=== PATIENT | male | born 1945 | race Caucasian/White ===

== ENCOUNTER 2017-11-19 16:36 | Inpatient (IN) | payer OTHER ==
[~2017-11-19] VITALS: Ht 190.5 cm; Wt 117.5 kg
--- NOTE | ~2017-11-19 | HC ---
[facility] [place] [address] CONSULTATION Name: FLORENCIO CLEVELAND Room #: [facility] IN M.R.#: [id number] Admission: 11/19/17 Attend Phys: Justus Sam MD Discharge: Date of : 43 Report #: [id number] THIS REPORT FOR: //name// CC: Justus AVELAR PCP DATE OF SERVICE: 11/20/2017 CARDIOLOGY CONSULTATION INDICATION: Chest pain. HISTORY OF PRESENT ILLNESS: This is a 71-year-old gentleman presenting with acute onset of chest pains. Yesterday afternoon, he was working on the computer. He started to feel a discomfort in the substernal area, then he proceeded to black out in his chair. After 30-40 seconds, he regained consciousness. He got up and started to walk around. He still had the substernal chest pain, associated with diaphoresis and dyspnea. His came home and they went to an urgent care facility. They were directed to the ER. The initial EKG revealed atrial fibrillation with a heart rate of 155 beats per minute. He was given Cardizem and converted to sinus rhythm. There is no history of fever, chills, PND or orthopnea. PAST MEDICAL HISTORY: Denies hypertension. Denies diabetes. ALLERGIES: None. MEDICATIONS: None. SOCIAL HISTORY: Denies tobacco use. FAMILY HISTORY: Negative for premature CAD. REVIEW OF SYSTEMS: A full 10-point review of systems is performed. Only the pertinent positives and negatives are described in the HPI. PHYSICAL EXAMINATION: VITAL SIGNS: Blood pressure is 150/80, heart rate is 75 beats per minute. GENERAL APPEARANCE: This is a mildly overweight male, in no acute distress. HEENT: Normocephalic, atraumatic. Oral mucosa moist. NECK: Supple. LUNGS: Clear to auscultation. CARDIAC: Regular rate and rhythm, S1, S2 positive. ABDOMEN: Soft, nontender. EXTREMITIES: No cyanosis. Trace lower extremity edema. NEUROLOGIC: Alert and oriented x 3. [facility] [address] [place] [address] CONSULTATION Name: CLEVELANDFLORENCIO Room #: [address] [place] [address] IN M.R.#: [id number] Admission: 11/19/17 Attend Phys: Justus Sam MD Discharge: Date of : 44 Report #: [id number] RADIOLOGIC DATA: EKG #1 reveals AFib with a heart rate of 155 beats per minute, ST-segment depressions in the precordial leads. EKG #2 reveals sinus rhythm, nonspecific findings. LABORATORY DATA: White count is 8.6, hemoglobin is 14.3. Creatinine is 1.0. Peak troponin is 2.36. ASSESSMENT AND PLAN: 1. Non-ST elevation myocardial infarction, presenting with chest pains exacerbated by rapid heart rate from the atrial fibrillation. I discussed with the patient the risks and benefits of a cardiac catheterization. He understands and wishes to proceed. 2. Paroxysmal atrial fibrillation, appears to be his first episode. Interestingly, he did not experience a racing heart, but felt chest pains. We will continue beta wili for now. He will need an echo. 3. Hypertension. The blood pressure is elevated. He will continue with beta wili therapy. 4. Edema, maintain a DASH diet. <ELECTRONICALLY SIGNED> By: Padilla Matos MD 11/21/17811 4 1110 Padilla Matos MD /nt
--- NOTE | ~2017-11-19 | EKG ---
[address] [address] ELECTROCARDIOGRAM REPORT Name: FLORENCIO CLEVELAND Room #: 211-P ADM IN M.R.#: [id number] Admission: 11/19/17 Attend Phys: Justus Sam MD Discharge: Date of : 44 Report #: [id number] THIS REPORT FOR: //name// [facility] ED Test Date: 2017-11-19 Test Time: 16:44:14 Pat Name: FLORENCIO CLEVELAND Department: Room: 211 Gender: M Gps Field Data Collector: MARY : 1945 Requested By: Parish Akhtar Order Number: [id number] MD: Shiraz Dobbs Measurements Intervals [place] Rate: 155 P: [place]: QRS: -81 QRSD: 100 T: 43 QT: 292 QTc: 469 Interpretive Statements Atrial fibrillation with rapid V-rate Abnormal R-wave progression, late transition Inferior infarct, old ST depression, probably rate related No previous ECG available for comparison Electronically Signed On 11-20-2017 7:23:18 CDT by Shiraz Dobbs [email or web address] <ELECTRONICALLY SIGNED> By: Shiraz Dobbs MD, [facility] 11/20/17 0723 1644 1644 Shiraz Dobbs MD, [facility] /EPI
--- NOTE | ~2017-11-19 | CATHLAB ---
[place] [address] [address] [place] [address] INVASIVE PROCEDURE REPORT Name: FLORENCIO CLEVELAND Room #: 211-P ADM IN .R.#: [id number] Admission: 11/19/17 Attend Phys: Justus Sam, Discharge: Date of : 44 Date of Service: 11/20/17 1659 Report #: [id number] THIS REPORT FOR: //name// APPROVED REPORT Study performed: 11/20/2017 08:21:35 Patient Details Patient Status: In-Patient Room #: The patient is a 71 year-old male Event Personnel Padilla Matos Religious Leader, Rachel Pimentel RN RN, Yamilet Trevino Sandifer, David Monitor Procedures Performed Left Heart Cath w/or w/o Coronaries [id number] [facility] Indication Non-STEMI , Atrial fibrillation, Dyspnea, Chest pain Risk Factors Hypercholesterolemia, Hypertension Procedure Narrative The Right Groin^ was infiltrated with 1% Lidocaine subcutaneous anesthesia. A PINNACLE 4FR Sheath #[id number] sheath was inserted into the RFA^. Coronary angiography was performed using coronary diagnostic catheters. The right coronary system was accessed and visualized with a JR4 catheter. The left coronary system was accessed and visualized with a 4FR JL 5.0 #[id number] catheter. The left ventricle was accessed and visualized with a PIGTAIL catheter. Left ventricular/Aortic Valve gradient assessed via catheter pullback. Left ventriculogram was performed in 30 degree projection. Hemostasis was obtained with manual pressure following sheath removal without any complications. The patient tolerated the procedure well and there were no complications associated with the procedure. There was no hematoma. Intraoperative Conscious Sedation Sedation start time: 8.39 Case end Time: 9.16 Fentanyl 100 mcg Versed 2 mg Fluoro Time: 4.06 minutes [facility] [address] [place] [address] INVASIVE PROCEDURE REPORT Name: FLORENCIO CLEVELAND Room #: 211-P [facility] IN ..#: [id number] Admission: 11/19/17 Attend Phys: Justus Sam, Discharge: Date of : 44 Date of Service: 11/20/17 1659 Report #: [id number] Dose: DAP 8397 cGycm2 1108 mGy Contrast Type and Amount: Omnipaque 140 ml Coronary Angiography The patient's coronary anatomy is co- dominant. Diagnostic Cath Left Main patent vessel, with no flow-limiting lesions. LAD Moderate size caliber vessel, traveling down the anterior wall and wrapping around the apex. There may be minimal plaquing in the mid segment of the LAD. Diagonal 1 Patent vessel, with no flow-limiting lesions. Circumflex Codominant vessel with no flow-limiting lesions. OM1 Patent vessel, with no flow-limiting lesions. OM2 Moderate size caliber vessel, with no flow-limiting lesions. OM3 Patent vessel, with no flow-limiting lesions. Right Coronary Patent vessel, with no flow-limiting lesions. R PDA Small to moderate size caliber vessel, with no flow-limiting lesions. Left Ventriculography The left ventricle is mildly dilated in size with decreased contractility. The left ventricular ejection fraction is estimated to be 40-45%. There is mild global LV dysfunction, with more pronounced hypokinesis of the distal inferior segment. Hemodynamics The aortic pressure is 150/91 mmHg with a mean of 93 mmHg. The left ventricular pressure is 151/19 mmHg with a mean of mmHg. The left ventricular end diastolic pressure is 31 mmHg. There was no gradient across the aortic valve upon pullback. Pullback from the left ventricle to the aorta revealed no gradient across the aortic valve. Conclusion 1. Patent coronary arteries, with minimal plaquing noted in the mid segment of the LAD. 2. Codominant system. [facility] [address] [place] [address] INVASIVE PROCEDURE REPORT Name: FLORENCIO CLEVELAND Room #: 211-P ADM IN M.R.#: [id number] Admission: 11/19/17 Attend Phys: Justus Sam, Discharge: Date of : 44 Date of Service: 11/20/17 0937 Report #: [id number] 3. Mild LV dysfunction. 4. Recommend risk factor management. <ELECTRONICALLY SIGNED> By: Padilla Matos MD 11/20/171658 58 58 Padilla Matos MD /INF
--- NOTE | ~2017-11-19 | EKG ---
[address] [address] ELECTROCARDIOGRAM REPORT Name: FLORENCIO CLEVELAND Room #: 211-P ADM IN M.R.#: [id number] Admission: 11/19/17 Attend Phys: Justus Sam MD Discharge: Date of : 44 Report #: [id number] THIS REPORT FOR: //name// [facility] ED Test Date: 2017-11-19 Test Time: 18:26:43 Pat Name: FLORENCIO CLEVELAND Department: Room: 211 Gender: M Well Puller: VIJAYAG : 1945 Requested By: Parish Akhtar Order Number: [id number] MD: Shiraz Dobbs Measurements Intervals [place] Rate: 83 P: 18 KS: 144 QRS: -39 QRSD: 110 T: 30 QT: 367 QTc: 432 Interpretive Statements Sinus rhythm Inferior infarct, old No previous ECG available for comparison Electronically Signed On 11-20-2017 7:24:43 CDT by Shiraz Dobbs [email or web address] <ELECTRONICALLY SIGNED> By: Shiraz Dobbs MD, [facility] 11/20/17 0724 1826 25 Shiraz Dobbs MD, FACC /EPI
--- NOTE | ~2017-11-19 | 2DMMODE ---
[facility] [address] [place] [address] 2 D/M-MODE ECHOCARDIOGRAM Name: FLORENCIO CLEVELAND Room #: 211-P ADM IN .R.#: [id number] Admission: 11/19/17 Attend Phys: Justus Sam, Discharge: Date of : 43 Date of Service: 11/20/17 1501 Report #: [id number] THIS REPORT FOR: //name// APPROVED REPORT Study performed: 11/20/2017 13:59:24 EXAM: Comprehensive 2D, Doppler, and color-flow Echocardiogram Patient Location: Bedside Room #: 211 Status: routine BSA: 2.47 HR: 76 bpm BP: 140/87 mmHg Rhythm: NSR Other Information Study Quality: Adequate Indications Atrial Fibrillation Chest Pain 2D Dimensions RVDd: 37.18 mm IVSd: 10.42 (7-11mm) LVOT Diam: 19.85 (18-24mm) LVDd: 61.19 mm PWd: 11.09 (7-11mm) Ascending Ao: 37.45 (22-36mm) LVDs: 47.77 (25-40mm) Aortic Root: 38.43 mm IVC: 18.00 mm Volumes Left Atrial Volume (Systole) Single Plane 4CH: 58.27 mL Single Plane 2CH: 65.80 mL LA ESV Index: 28.00 mL/m2 Aortic Valve AoV Peak Herrera.: 1.05 m/s AO Peak Gr.: 4.45 mmHg LVOT Max P.84 mmHg LVOT Max V: 0.84 m/s WALTER Vmax: 2.47 cm2 Mitral Valve E/A Ratio: 1.5 MV Decel. Time: 221.77 ms [facility] [place] [address] 2 D/M-MODE ECHOCARDIOGRAM Name: FLORENCIO CLEVELAND Room #: [facility] IN ..#: [id number] Admission: 11/19/17 Attend Phys: Justus Sam, Discharge: Date of : 43 Date of Service: 11/20/17 1501 Report #: [id number] MV E Max Herrera.: 0.60 m/s MV A Herrera.: 0.40 m/s MV PHT: 64.31 ms IVRT: 96.89 ms Pulmonary Valve PV Peak Herrera.: 0.74 m/s PV Peak Gr.: 2.17 mmHg Pulmonary Vein P Vein S: 0.52 m/s P Vein A: 0.30 m/s P Vein D: 0.56 m/s P Vein A Dur.: 106.1 msec P Vein S/D Ratio: 0.93 Tricuspid Valve TR Peak Herrera.: 2.52 m/s TR Peak Gr.: 25.49 mmHg PA Pressure: 30.00 mmHg Left Ventricle Left ventricle is dilated. There is mild global hypokinesis of the left ventricle. There is normal left ventricular wall thickness. Left ventricular systolic function is mildly decreased. LVEF is 45%. Right Ventricle The right ventricle is normal size. The right ventricular systolic function is normal. Atria The left atrium size is normal. Right atrium is dilated. Aortic Valve The aortic valve is normal in structure. No aortic regurgitation is present. There is no aortic valvular stenosis. Mitral Valve The mitral valve is normal in structure. Mild mitral regurgitation. No evidence of mitral valve stenosis. Tricuspid Valve The tricuspid valve is normal in structure. There is trace to mild tricuspid regurgitation. Pulmonic Valve The pulmonary valve is normal in structure. There is no pulmonic valvular regurgitation. [address] [address] 2 D/M-MODE ECHOCARDIOGRAM Name: FLORENCIO CLEVELAND Room #: 211-P [facility] IN M.R.#: [id number] Admission: 11/19/17 Attend Phys: Justus Sam, Discharge: Date of : 43 Date of Service: 11/20/17 1501 Report #: [id number] Great Vessels The aortic root is normal in size. IVC is normal in size and collapses >50% with inspiration. Pericardium There is no pericardial effusion. <Conclusion> Left ventricle is dilated. Left ventricular systolic function is mildly decreased. LVEF is 45%. The right ventricle is normal size. The left atrium size is normal. The aortic valve is normal in structure. Mild mitral regurgitation. There is trace to mild tricuspid regurgitation. <ELECTRONICALLY SIGNED> By: Padilla Matos MD 11/20/171500 00 00 Padilla Matos MD /INF
--- NOTE | ~2017-11-19 | EKG ---
[address] [address] ELECTROCARDIOGRAM REPORT Name: FLORENCIO CLEVELAND Room #: 211-P ADM IN M.R.#: [id number] Admission: 11/19/17 Attend Phys: Justus Sam MD Discharge: Date of : 43 Report #: [id number] THIS REPORT FOR: //name// [facility] Test Date: 2017-11-20 Test Time: 00:25:25 Pat Name: FLORENCIO CLEVELAND Department: Room: 211 P Gender: M Wholesale Account Executive: FRANCES : 1945 Requested By: Padilla Matos Order Number: [id number] MD: Shiraz Dobbs Measurements Intervals [place] Rate: 66 P: 37 ME: 164 QRS: -43 QRSD: 111 T: 45 QT: 411 QTc: 431 Interpretive Statements Sinus rhythm Multiform ventricular premature complexes Left axis deviation No previous ECG available for comparison Electronically Signed On 11-20-2017 7:31:06 CDT by Shiraz Dobbs [email or web address] <ELECTRONICALLY SIGNED> By: Shiraz Dobbs MD, [facility] 11/20/17 0731 0025 0025 Shiraz Dobbs MD, FACC /EPI
[2017-11-19 16:54] VITALS: BP 150/86
[2017-11-19 17:14] LABS: HEMATOCRIT 46.8 % (42.0-52.0); HEMOGLOBIN 16.3 gm/dL (14.0-18.0); MCH 32.5 pg (26.0-34.0); MCHC 34.8 g/dL (28.0-37.0); MCV 93.4 fL (80.0-100.0); RBC 5.01 mil/uL (4.50-6.00); RDW 13.3 % (10.5-14.5); WBC 8.7 thou/uL (4.0-11.0)
[2017-11-19 17:37] LABS: ANION GAP 14 mmol/L (7-16); BUN 24 mg/dL (7-18); CALCIUM 10.2 mg/dL (8.5-10.1); CHLORIDE 101 mmol/L (98-107); CO2 26 mmol/L (21-32); CREATININE 1.2 mg/dL (0.7-1.3); GLUCOSE 133 mg/dL (74-106); POTASSIUM 4.3 mmol/L (3.5-5.1); SODIUM 141 mmol/L (136-145)
[2017-11-19 17:42] LABS: ALBUMIN 4.1 g/dL (3.4-5.0); MAGNESIUM 1.7 mg/dL (1.8-2.4); SGOT 49 U/L (15-37); SGPT 55 U/L (30-65); TOTAL BILIRUBIN 0.5 mg/dL (<0.1-1.0); TOTAL PROTEIN 7.6 g/dL (6.4-8.2); TROPONIN-I <0.06 ng/mL (<0.06)
[2017-11-19 18:31] VITALS: BP 146/98
[2017-11-19 19:00] VITALS: BP 154/82
[2017-11-19 19:06] LABS: CHOLESTEROL 203 mg/dL (<200); HDL CHOLESTEROL 84 mg/dL (>40); LDL CHOLESTEROL 104 mg/dL (<100); TC:HDL 2.4 Ratio (Not establshd); TRIGLYCERIDE 77 mg/dL (<150); VLDL 15 mg/dL (<40)
[2017-11-19 20:07] VITALS: BP 169/81
[2017-11-20] VITALS (7 sets, daily range): BP systolic 138–153; BP diastolic 87–95
[2017-11-20 00:01] LABS: PROTIME 9.5 Seconds (9.3-11.4)
[2017-11-20 06:10] LABS: ABSOLUTE NEUTROPHILS 5.4 thou/uL (1.4-8.2); BASOPHILS 1.1 % (0.0-2.0); EOSINOPHILS 3.9 % (0.0-3.0); HEMATOCRIT 42.1 % (42.0-52.0); LYMPHOCYTES 22.7 % (24.0-44.0); MCH 31.8 pg (26.0-34.0); MCHC 33.9 g/dL (28.0-37.0); MCV 93.8 fL (80.0-100.0); PLATELET COUNT 208 thou/uL (150-400); POLYS 62.3 % (36.0-66.0); RBC 4.49 mil/uL (4.50-6.00); RDW 13.3 % (10.5-14.5); WBC 8.6 thou/uL (4.0-11.0)
[2017-11-20 06:14] LABS: HEMOGLOBIN 14.3 gm/dL (14.0-18.0)
[2017-11-20 06:26] LABS: ANION GAP 9 mmol/L (7-16); BUN 22 mg/dL (7-18); CALCIUM 9.5 mg/dL (8.5-10.1); CHLORIDE 102 mmol/L (98-107); CHOLESTEROL 163 mg/dL (<200); CO2 28 mmol/L (21-32); GLUCOSE 98 mg/dL (74-106); HDL CHOLESTEROL 75 mg/dL (>40); LDL CHOLESTEROL 78 mg/dL (<100); MAGNESIUM 1.8 mg/dL (1.8-2.4); POTASSIUM 4.2 mmol/L (3.5-5.1); SODIUM 139 mmol/L (136-145); TC:HDL 2.2 Ratio (Not establshd); TRIGLYCERIDE 54 mg/dL (<150); VLDL 11 mg/dL (<40)
[2017-11-20 06:28] LABS: TROPONIN-I 1.82 ng/mL (<0.06)
[2017-11-21 00:04] VITALS: BP 129/61
[2017-11-21 03:51] LABS: HEMATOCRIT 43.8 % (42.0-52.0); HEMOGLOBIN 15.1 gm/dL (14.0-18.0); MCH 32.4 pg (26.0-34.0); MCHC 34.5 g/dL (28.0-37.0); MCV 93.9 fL (80.0-100.0); RBC 4.66 mil/uL (4.50-6.00); RDW 13.2 % (10.5-14.5); WBC 8.8 thou/uL (4.0-11.0)
[2017-11-21 04:03] LABS: CALCIUM 9.8 mg/dL (8.5-10.1); POTASSIUM 4.5 mmol/L (3.5-5.1)
[2017-11-21 04:48] VITALS: BP 129/85
[2017-11-21 07:28] VITALS: BP 126/85
[2017-11-21] MEDS ORDERED: LOPRESSOR25 PO (10:31)
[2017-11-21] MEDS ORDERED: COZAAR 25 MG TA25 M1 PO (10:31)
[2017-11-21] MEDS ORDERED: LIPITOR 20 MG T20 M1 PO (10:31)
[2017-11-21] MEDS ORDERED: ELIQUIS5 MG PO (10:31)
[2017-11-21 10:56] VITALS: BP 126/85
== END 2017-11-21 11:19 | disposition home or self-care (01) | DRG 280 ==
LOC: ER 16:36 → EROBS 18:07 → 2N 18:07 → ENTRNSPT 11-21 11:09 → 2N 11-21 11:19 → CMPTRNSPT 11-21 11:30
PROVIDERS: Emergency Medicine; Internal Medicine Cardiovascular Disease; Nurse Practitioner
DX: I21.4 Non-ST elevation (NSTEMI) myocardial infarction (principal); I50.33 Acute on chronic diastolic (congestive) heart failure; I42.9 Cardiomyopathy, unspecified; I51.4 Myocarditis, unspecified; I48.0 Paroxysmal atrial fibrillation; I10 Essential (primary) hypertension; E83.42 Hypomagnesemia; E78.5 Hyperlipidemia, unspecified; F10.10 Alcohol abuse, uncomplicated; Z79.82 Long term (current) use of aspirin; Z79.899 Other long term (current) drug therapy; Z87.891 Personal history of nicotine dependence; Z82.49 Family history of ischemic heart disease and other diseases of the circulatory system
CPT/HCPCS: 10194

== ENCOUNTER → 2019-06-18 | Outpatient (CLI) | payer OTHER ==
[~2019-06-18] MED LIST: COZAAR 25 MG TA25 M1 PO; ELIQUIS5 MG PO; LIPITOR 20 MG T20 M1 PO; LOPRESSOR25 PO
== END ==
LOC: SJCVC 13:08
DX: I44.4 Left anterior fascicular block (principal); R94.31 Abnormal electrocardiogram [ECG] [EKG]; I42.9 Cardiomyopathy, unspecified; I10 Essential (primary) hypertension; I48.91 Unspecified atrial fibrillation; E78.00 Pure hypercholesterolemia, unspecified; Z79.899 Other long term (current) drug therapy; Z87.891 Personal history of nicotine dependence

== ENCOUNTER 2019-11-10 14:47 | Emergency (ER) | payer OTHER ==
[~2019-11-10] VITALS: Ht 190.5 cm; Wt 107.0 kg
[2019-11-10 15:44] LABS: HEMATOCRIT 43.8 % (42.0-52.0); HEMOGLOBIN 14.5 gm/dL (14.0-18.0); MCH 31.5 pg (26.0-34.0); MCV 95.3 fL (80.0-100.0); RBC 4.6 mil/uL (4.50-6.00); RDW 13.2 % (10.5-14.5); WBC 12.2 thou/uL (4.0-11.0)
[2019-11-10 15:48] LABS: ANION GAP 16 mmol/L (7-16); BUN 22 mg/dL (7-18); CALCIUM 9.3 mg/dL (8.5-10.1); CHLORIDE 99 mmol/L (98-107); CO2 21 mmol/L (21-32); CREATININE 0.9 mg/dL (0.7-1.3); GLUCOSE 144 mg/dL (74-106); POTASSIUM 4.4 mmol/L (3.5-5.1); SODIUM 136 mmol/L (136-145)
[2019-11-10 15:57] LABS: TROPONIN-I <0.06 ng/mL (<0.06)
[2019-11-10 16:43] VITALS: BP 132/69
--- NOTE | 2019-11-11 07:42 | EKG ---
[facility] [place] [address] ELECTROCARDIOGRAM REPORT Name: FLORENCIO CLEVELAND [id number] Admission: 11/10/19 Attend Phys: Discharge: 11/10/19 Date of : 44 Report #: [id number] THIS REPORT FOR: cc: Germain Francis MD, Bernard O. MD Santiago, Patrick MD [facility] ~ THIS REPORT FOR: //name// [facility] ED Test Date: 2019-11-10 Test Time: 14:52:20 Pat Name: FLORENCIO CLEVELAND Department: Room: Gender: Belt Sewer: : 1945 Requested By: Deuce Robison Order Number: [id number] MD: Ethan Fairchild Measurements Intervals [place] Rate: 50 P: 75 IN: 155 QRS: -42 QRSD: 124 T: 42 QT: 450 QTc: 411 Interpretive Statements Sinus arrhythmia Nonspecific IVCD with LAD Inferior infarct, old Compared to ECG 11/20/2017 00:25:25 Sinus rhythm no longer present Ventricular premature complex(es) no longer present Electronically Signed On 11-11-2019 7:42:13 CDT by Ethan Fairchild [email or web address] <ELECTRONICALLY SIGNED> By: Ethan Fairchild MD, [facility] 11/11/19 0742 145 145 Ethan Fairchild MD, [facility] /EPI
== END 2019-11-10 16:44 | disposition home or self-care (01) ==
LOC: ER 14:47
PROVIDERS: Emergency Medicine
DX: R42 Dizziness and giddiness (principal); Z79.899 Other long term (current) drug therapy; Z87.891 Personal history of nicotine dependence

== ENCOUNTER → 2019-11-13 | Outpatient (CLI) | payer OTHER | LOC: SJCVCIMAG 09:16 | PROVIDERS: ATTEND Internal Medicine Cardiovascular Disease | DX: I08.1 Rheumatic disorders of both mitral and tricuspid valves (principal); I11.9 Hypertensive heart disease without heart failure; R00.1 Bradycardia, unspecified; R42 Dizziness and giddiness; I48.91 Unspecified atrial fibrillation; E78.5 Hyperlipidemia, unspecified; I42.9 Cardiomyopathy, unspecified; Z79.899 Other long term (current) drug therapy; Z87.891 Personal history of nicotine dependence ==

== ENCOUNTER → 2019-11-27 | Outpatient (CLI) | payer OTHER | LOC: SJCVC 11:23 | PROVIDERS: ATTEND Internal Medicine Cardiovascular Disease | DX: R94.31 Abnormal electrocardiogram [ECG] [EKG] (principal); I49.49 Other premature depolarization; I48.91 Unspecified atrial fibrillation; I10 Essential (primary) hypertension; R60.9 Edema, unspecified; Z79.899 Other long term (current) drug therapy; Z87.891 Personal history of nicotine dependence ==

== ENCOUNTER → 2020-04-02 | Outpatient (CLI) | payer OTHER ==
[~2020-04-02] MED LIST changes: +AVAPRO 150 MG150 M1 PO; +DILTIAZEM ER180 M2 PO; +FLONASE 0.05%50 MCG NARES
== END ==
LOC: LAB 12:29
PROVIDERS: ATTEND Orthopaedic Surgery
DX: Z01.812 Encounter for preprocedural laboratory examination (principal); Z20.822 Contact with and (suspected) exposure to COVID-19

== ENCOUNTER 2020-04-07 11:04 | Observation (INO) | payer OTHER ==
[2020-04-02 10:59] LABS: URINE BILIRUBIN NEGATIVE (Negative); URINE BLOOD TRACE (Negative); URINE CLARITY CLEAR; URINE COLOR YELLOW; URINE GLUCOSE-RANDOM* NEGATIVE (Negative); URINE KETONES NEGATIVE (Negative); URINE LEUKOCYTES-REFLEX NEGATIVE (Negative); URINE NITRITE-REFLEX NEGATIVE (Negative); URINE PROTEIN (DIPSTICK) NEGATIVE (Negative); URINE SPECIFIC GRAVITY 1.025 (1.005-1.035); URINE UROBILINOGEN 0.2 E.U./dl (0.2-1.0)
[2020-04-02 11:01] LABS: HEMATOCRIT 46.7 % (42.0-52.0); HEMOGLOBIN 15.5 gm/dL (14.0-18.0); MCH 31.3 pg (26.0-34.0); MCHC 33.3 g/dL (28.0-37.0); RBC 4.97 mil/uL (4.50-6.00); RDW 13.2 % (10.5-14.5); WBC 7.4 thou/uL (4.0-11.0)
[2020-04-02 11:10] LABS: ALBUMIN 4.3 g/dL (3.4-5.0); CALCIUM 9.6 mg/dL (8.5-10.1); POTASSIUM 4.8 mmol/L (3.5-5.1)
[~2020-04-07] VITALS: Ht 190.5 cm; Wt 108.9 kg
[2020-04-07 12:05] VITALS: BP 155/92
[2020-04-07 17:15] VITALS: BP 139/77
[2020-04-07 17:45] VITALS: BP 139/77
[2020-04-07 18:15] VITALS: BP 152/82
[2020-04-07 19:11] VITALS: BP 143/81
--- NOTE | 2020-04-07 23:42 | NUR ---
PT IS ALERT AND ORIENTED. NOT IN ANY DISTRESS. LEFT KNEE WITH REYNALDO DRSG AND POLAR GISELLE. TEDS AND SCDS ALSO IN PLACE.PT USING URINAL. DENIES PAIN. LEFT FOOT WITH GOOD CIRCULATION AND MOVEMENT. PT STILL REPORTS NUMBNESS. HS MEDS GIVEN, AFEBRILE. STILL ON 02/ POST OP. DENIES FURTHER NEEDS.CALL LIGHT WITHIN REACH.
[2020-04-08 04:21] VITALS: BP 130/84
[2020-04-08 05:27] LABS: HEMATOCRIT 36.3 % (42.0-52.0); HEMOGLOBIN 12.1 gm/dL (14.0-18.0); MCH 31.9 pg (26.0-34.0); MCHC 33.3 g/dL (28.0-37.0); MCV 95.7 fL (80.0-100.0); RBC 3.8 mil/uL (4.50-6.00); RDW 13.1 % (10.5-14.5); WBC 15.5 thou/uL (4.0-11.0)
[2020-04-08 08:13] VITALS: BP 128/74
--- NOTE | 2020-04-08 09:40 | NUR ---
ASSESSMENT: CM REVIEWED CHART AND SPOKE WITH PATIENT AT THE BEDSIDE. PT IS ALERT AND ORIENTED X4. PT IS S/P L TKA. PT REPORTS THAT HE LIVES IN A HOUSE WITH HIS . PT REPORTS TWO STEPS TO ENTER AND NO STEPS ONCE INSIDE. PT REPORTS HAVING A WALKER AT HOME FOR AMBULATION HE HAS HAD A SURGERY IN THE PAST. PT REPORTS HE HAS OUTPATIENT THERAPY ARRANGED FOR [facility] TO BEGIN TOMORROW. PT REPORTS HE HAS NO NEEDS FROM CM. PATIENT WAS CLEARED BY PHYSICAL THERAPY TO GO HOME TODAY.
[2020-04-08 11:20] VITALS: BP 128/74
--- NOTE | 2020-04-08 14:01 | O ---
[facility] [place] [address] OPERATIVE REPORT Name: FLORENCIO CLEVELAND Room #: 448-P [facility] Rochelle Reeves#: [id number] Admission: 04/07/20 Attend Phys: Ricki Pepe MD Discharge: Date of : 44 Report #: [id number] THIS REPORT FOR: cc: Germain Francis MD, Bernard O. MD Abraham,Ricki Cabello MD ~ DATE OF SERVICE: 04/07/2020 PREOPERATIVE DIAGNOSIS: Left knee osteoarthritis. POSTOPERATIVE DIAGNOSIS: Left knee osteoarthritis. PROCEDURE: Left total knee arthroplasty using Navio robotic staff assistant. SURGEON: Ricki Pepe MD. GAME AUTHOR: Stephanie Tello PA-C. INDICATIONS FOR GAME AUTHOR: Throughout the case, extensive retraction and manipulation of the knee was required. This was afforded to me by my staff assistant. ANESTHESIA: LMA. IMPLANTS: [employer]a [employer]hew size 6 cobalt chrome Journey II BCS femur, a size 6 tibia, size 13 constrained polyethylene, and a size 38 patella. TOURNIQUET TIME: 57 minutes. ESTIMATED BLOOD LOSS: 25 mL. COMPLICATIONS: None. SPECIMENS: None. CONDITION UPON LEAVING THE OPERATING ROOM: Stable. INDICATIONS FOR PROCEDURE: The patient is a 74-year-old gentleman with severe left knee osteoarthritis. He had failed conservative measures for this; and after discussion with him, he elected for left total knee arthroplasty. DESCRIPTION OF PROCEDURE: Risks, benefits, alternatives, and complications were discussed in detail with the patient including, but not limited to, risk of anesthesia, risk of damage to nerves, arteries, blood vessels, risk for infection, bleeding, risk for continued knee pain, need for reoperation. Informed consent was obtained from the patient. Left knee was appropriately [facility] [address] [place] [address] OPERATIVE REPORT Name: FLORENCIO CLEVEALND Room #: 448-P [facility] Rochelle Reeves#: [id number] Admission: 04/07/20 Attend Phys: Ricki Pepe MD Discharge: Date of : 43 Report #: [id number] marked in the preoperative holding area. IV Ancef was given for preoperative antibiotics. He was brought to the operating room, transferred to the operating room table. Spinal anesthesia was attempted, but was unsuccessful and so LMA anesthesia was induced without complication. Tourniquet was placed on the left thigh. Left lower extremity was prepped and draped in normal sterile fashion. Timeout was performed properly identifying the patient and procedure as well as the instrumentation and implants. All in the operating room were in agreement. Left lower extremity was exsanguinated, tourniquet was inflated. Tourniquet time was 57 minutes. Standard midline approach to the knee was made with 10 blade through the skin. Dissection was taken down sharply to the fascia and deep flaps were developed medially and laterally. Fresh 10 blade was used to make a medial parapatellar arthrotomy and the knee was inspected. There was severe tricompartmental osteoarthritis of the knee. ACL and PCL were removed sharply. Reference pins were placed in the femur and the tibia. The knee was digitally mapped using the [employer] robotic system. Intraoperative plan was made and we sized the size 6 femur, size 6 tibia, and a 10 spacer. After acceptance of the intraoperative plan, the distal femoral cut was made with a Navio bur. Distal femoral cutting block was pinned in place and chamfer cuts were made. Attention was turned to the tibia. Remainder of the menisci removed with Bovie cautery. Tibial resection guide was pinned in place using Navio for placement and tibial resection was made. After this, medial osteophyte was removed from the tibia. Flexion and extension gaps were checked and found to have good balance in flexion and extension both medially and laterally. Tibia was sized, found to be a size 6. A size 6 tibial trial was placed, pinned and punched. Size 6 femoral trial was placed and the box cut was made. This was then trialed with a size 10 sequentially up to a size 13 polyethylene. The size 13 demonstrated good balance laterally. In extension medially, there was up to 3.5 mm of laxity. It was felt we could make up for this with a constrained implant. After this, 9 mm was resected from the posterior surface of the patella and a size 38 patellar trial button was placed. Knee was taken through range of motion, found to be stable, found to have good patellar tracking. Trial components were removed. Bony ends were thoroughly irrigated with normal saline. A final size 6 tibia, size 6 Journey II BCS cobalt chrome femur, and a size 38 patella were cemented in place using standard cementation techniques. While the cement cured, a periarticular injection consisting of morphine, ropivacaine, epinephrine, and Toradol was placed around the knee joint capsule. After the cement cured, tourniquet was deflated. Hemostasis was obtained with Bovie cautery. A final size 13 constrained polyethylene was placed. A gram of vancomycin was placed deep in the joint. The fascia was closed with 0 Vicryl, skin was closed with 2-0 Vicryl, skin staple and a REYNALDO dressing was applied. [address] [address] OPERATIVE REPORT Name: FLORENCIO CLEVELAND Room #: 448-P [facility] Rochelle Reeves#: [id number] Admission: 04/07/20 Attend Phys: Ricki Pepe MD Discharge: Date of : 43 Report #: [id number] The patient tolerated this procedure well and went to recovery room under care of anesthesia postoperatively. <ELECTRONICALLY SIGNED> By: Ricki Pepe MD 04/08/20 1401 1623 1652 Ricki Pepe MD /nt
== END 2020-04-08 17:11 | disposition home or self-care (01) ==
LOC: OR 11:04 → 4S 17:04 → OR 17:05 → 4S 04-08 17:11
PROVIDERS: ADMIT Orthopaedic Surgery; ATTEND Orthopaedic Surgery
DX: M17.12 Unilateral primary osteoarthritis, left knee (principal); I48.91 Unspecified atrial fibrillation; Z79.899 Other long term (current) drug therapy
CPT/HCPCS: 27447; S2900; 50010; 50101; 50415; 50954; 51130; 51225; 51320; 51412; 53000; 53078; 56527; 56528; 57095; 57103; 57110; 57127; 57180; 58239; 62110; 62900; 64042; 65085; 70005

== ENCOUNTER → 2020-05-20 | Outpatient (CLI) | payer OTHER ==
[~2020-05-20] VITALS: Ht 190.5 cm; Wt 106.6 kg
[2020-05-20 07:27] VITALS: BP 112/59
[2020-05-20 07:46] LABS: HEMATOCRIT 40.2 % (42.0-52.0); HEMOGLOBIN 13.5 gm/dL (14.0-18.0); MCHC 33.6 g/dL (28.0-37.0); MCV 89.2 fL (80.0-100.0); RBC 4.5 mil/uL (4.50-6.00); WBC 8.8 thou/uL (4.0-11.0)
[2020-05-20 07:58] LABS: CALCIUM 9.2 mg/dL (8.5-10.1); CREATININE 1.2 mg/dL (0.7-1.3); POTASSIUM 4.5 mmol/L (3.5-5.1)
[2020-05-20 08:04] LABS: ALBUMIN 3.4 g/dL (3.4-5.0); TOTAL BILIRUBIN 0.4 mg/dL (0.2-1.0); TOTAL PROTEIN 6.9 g/dL (6.4-8.2)
--- NOTE | 2020-05-20 08:30 | NUR ---
[facility] IT WAS NOTED THAT THERE WAS A RED CIRCULAR AREA OF REDNESS LOCATED WHERE THE DEFIB PATCH WAS PLACED ON THE CENTER OF THE PATIENTS CHEST. THE PHYSICIAN DR. REBOLLAR WAS ABLE TO VISUALIZE THIS AND ACTION WAS TAKEN TO SUBMIT AN ORDER FOR SILVADENE CREAM 1% OINTMENT. THE ORDER WAS SUBMITTED TO PHARMACY AND THE CREAM WILL BE APPLIED TO THE AREA OF REDNESS. THE PATIENT DENIES ANY COMPLAINTS. WILL CONTINUE TO MONITOR UNTIL DISCHARGED.
--- NOTE | 2020-05-20 09:32 | TEE ---
[facility] [place] [address] TRANSESOPHAGEAL ECHOCARDIOGRAM Name: FLORENCIO CLEVELAND Room #: REG SONAM Betts#: [id number] Admission: 05/20/20 Attend Phys: Ethan Fairchild MD, Discharge: Date of : 43 Report #: [id number] THIS REPORT FOR: cc: NO FAMILY PHYSICIAN or PCP NO FAMILY PHYSICIAN or PCP Ethan Fairchild MD [facility] ~ APPROVED REPORT Study performed: 05/20/2020 07:47:51 EXAM: Comprehensive 2D, Doppler, and color-flow Echocardiogram Patient Location: Out-Patient Room #: 9 Status: routine BSA: 2.35 HR: 125 bpm BP: 116/65 mmHg Rhythm: Atrial Flutter Other Information Study Quality: Good Indications Atrial flutter Echo Enhancing Agent Indication: Rule out Shunt Agent(s) / Amount(s) Used: Agitated Saline 7 cc Procedure After obtaining informed consent, patient underwent transesophageal echo in the [employer]. Type of Sedation : Conscious Sedation Sedation was administered by Humaira Avitia RN. Sedation start time: 751 Case end Time: 804 Sedation was achieved intravenously with: Versed (10 mg) Fentanyl (100 mcg) Transesophageal probe was inserted and advanced into esophagus without difficulty by Ethan Fairchild MD. Echo enhancement indication: R/O Septal defect. Echo enhancement agent administered: Agitated Saline The TAMIA was performed without complications. Synchronized Cardioversion acheived with 150 Joules after 1 [facility] [address] [place] [address] TRANSESOPHAGEAL ECHOCARDIOGRAM Name: FLORENCIO CLEVELAND Room #: REG CL [facility]#: [id number] Admission: 05/20/20 Attend Phys: Ethan Fairchild, Discharge: Date of : 43 Report #: [id number] attempt(s). Rhythm following Synchronized Cardioversion: Normal Sinus Rhythm Throughout the procedure, the blood pressure, pulse oximetry, cardiac rhythm, and rate were monitored. The patient tolerated the procedure without adverse effects. Recovery from conscious sedation was uneventful and vital signs were stable. Left Ventricle Left ventricle is at the upper limits of normal. Borderline concentric left ventricular hypertrophy. Left ventricular ejection fraction is severely decreased. LVEF is 20-25%. Right Ventricle The right ventricle is normal size. The right ventricular systolic function is normal. Atria Left atrium is at the upper limits of normal. Interatrial septum is intact without evidence of ASD or PFO. Right atrium is at the upper limits of normal. Aortic Valve The aortic valve is normal in structure. No aortic regurgitation is present. There is no aortic valvular stenosis. Mitral Valve The mitral valve is normal in structure. Trace mitral regurgitation. No evidence of mitral valve stenosis. Tricuspid Valve The tricuspid valve is normal in structure. Trace to mild tricuspid regurgitation. Pulmonic Valve The pulmonary valve is normal in structure. Great Vessels The aortic root is normal in size. Pericardium There is no pericardial effusion. <Conclusion> Consent was obtained Timeout was performed [facility] [employer] [address] [place] [address] TRANSESOPHAGEAL ECHOCARDIOGRAM Name: FLORENCIO CLEVELAND Room #: REG [facility]#: [id number] Admission: 05/20/20 Attend Phys: Ethan Fairchild, Discharge: Date of : 43 Report #: [id number] Baseline rhythm atrial fibrillation, ventricular rate of 120-130 bpm Esophageal probe was advanced without difficulty Left atrial appendage, moderate size, no obvious mass or clot detected Normal left ventricular size with borderline concentric hypertrophy Ejection fraction 20-25%, global hypokinesis Normal right ventricular size/function Normal aortic valve structure and function Normal mitral valve structure Trace mitral valve insufficiency Trace tricuspid valve insufficiency No evidence of atrial/ventricular septal defect by color flow/bubble study No pericardial effusion Minimal calcification in the aorta Patient was successfully cardioverted to sinus rhythm after 150 J/ biphasic mode Patient tolerated procedure well Twelve-lead ECG pending <ELECTRONICALLY SIGNED> By: Ethan Fairchild MD, FACC 05/20/20931 1 1 Ethan Fairchild MD, FACC /INF
--- NOTE | 2020-05-20 15:29 | EKG ---
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1945 Requested By: Ethan Fairchild Order Number: [id number] MD: Ethan Fairchild Measurements Intervals [place] Rate: 70 P: 49 SD: 149 QRS: -42 QRSD: 109 T: 45 QT: 368 QTc: 398 Interpretive Statements Sinus rhythm Abnormal R-wave progression, late transition Inferior infarct, old Compared to ECG 11/10/2019 14:52:20 Sinus arrhythmia no longer present Intraventricular conduction delay no longer present Myocardial infarct finding still present Electronically Signed On 05-20-2020 15:29:37 CDT by Ethan Fairchild [email or web address] <ELECTRONICALLY SIGNED> By: Ethan Fairchild MD, [facility] 05/20/20 1529 0850 0850 Ethan Fairchild MD, [facility] /EPI
== END | disposition home or self-care (01) ==
LOC: CATH 06:21
PROVIDERS: ATTEND Internal Medicine
DX: I48.92 Unspecified atrial flutter (principal); I08.1 Rheumatic disorders of both mitral and tricuspid valves; I10 Essential (primary) hypertension; J45.909 Unspecified asthma, uncomplicated; I48.91 Unspecified atrial fibrillation; Z98.890 Other specified postprocedural states; Z79.899 Other long term (current) drug therapy; Z87.891 Personal history of nicotine dependence; Z96.651 Presence of right artificial knee joint; Z79.01 Long term (current) use of anticoagulants; Z88.8 Allergy status to other drugs, medicaments and biological substances

== ENCOUNTER → 2020-05-25 | Outpatient (CLI) | payer OTHER | LOC: SJCVC 13:58 | PROVIDERS: ATTEND Internal Medicine Cardiovascular Disease | DX: R94.31 Abnormal electrocardiogram [ECG] [EKG] (principal); I44.4 Left anterior fascicular block; I48.0 Paroxysmal atrial fibrillation; I48.3 Typical atrial flutter; R42 Dizziness and giddiness; I25.5 Ischemic cardiomyopathy; I25.10 Atherosclerotic heart disease of native coronary artery without angina pectoris; E78.5 Hyperlipidemia, unspecified; I10 Essential (primary) hypertension; Z88.1 Allergy status to other antibiotic agents; Z79.899 Other long term (current) drug therapy; Z87.891 Personal history of nicotine dependence; Z72.89 Other problems related to lifestyle ==

== ENCOUNTER → 2020-07-13 | Outpatient (CLI) | payer OTHER ==
[2020-07-13 10:33] LABS: BASOPHILS 2.1 % (0.0-2.0); EOSINOPHILS 5.1 % (0.0-3.0); HEMATOCRIT 44.5 % (42.0-52.0); LYMPHOCYTES 24.3 % (24.0-44.0); MCH 28.9 pg (26.0-34.0); MCHC 33.8 g/dL (28.0-37.0); MCV 85.5 fL (80.0-100.0); MONOCYTES 8.2 % (1.0-8.0); PLATELET COUNT 293 thou/uL (150-400); POLYS 60.3 % (36.0-66.0); RDW 15.2 % (10.5-14.5); WBC 8.4 thou/uL (4.0-11.0)
[2020-07-13 10:59] LABS: ALBUMIN 3.8 g/dL (3.4-5.0); CALCIUM 9.5 mg/dL (8.5-10.1); CREATININE 1.1 mg/dL (0.7-1.3); POTASSIUM 4.6 mmol/L (3.5-5.1); TOTAL BILIRUBIN 0.3 mg/dL (0.2-1.0); TOTAL PROTEIN 7.3 g/dL (6.4-8.2)
== END ==
LOC: LAB 09:33
PROVIDERS: ATTEND Internal Medicine Cardiovascular Disease
DX: I48.91 Unspecified atrial fibrillation (principal); N20.0 Calculus of kidney; N28.1 Cyst of kidney, acquired; R59.0 Localized enlarged lymph nodes; M47.814 Spondylosis without myelopathy or radiculopathy, thoracic region; Z88.8 Allergy status to other drugs, medicaments and biological substances

== ENCOUNTER 2020-07-14 09:27 | Observation (INO) | payer OTHER ==
[~2020-07-14] VITALS: Ht 190.5 cm; Wt 118.8 kg
[2020-07-14 10:12] VITALS: BP 130/81
[2020-07-14 11:13] LABS: ABSOLUTE NEUTROPHILS 5.2 thou/uL (1.4-8.2); BASOPHILS 1.1 % (0.0-2.0); EOSINOPHILS 4.7 % (0.0-3.0); HEMOGLOBIN 14.8 gm/dL (14.0-18.0); LYMPHOCYTES 20.7 % (24.0-44.0); MCH 28.3 pg (26.0-34.0); MCHC 32.8 g/dL (28.0-37.0); MCV 86.1 fL (80.0-100.0); MONOCYTES 8.2 % (1.0-8.0); PLATELET COUNT 289 thou/uL (150-400); POLYS 65.3 % (36.0-66.0); RBC 5.22 mil/uL (4.50-6.00); RDW 15.4 % (10.5-14.5)
[2020-07-14 11:27] LABS: APTT 28.1 Seconds (24.5-32.8); INR 0.96; PROTIME 10.5 Seconds (10.5-12.1)
[2020-07-14 11:28] LABS: CALCIUM 9.5 mg/dL (8.5-10.1); CREATININE 1.1 mg/dL (0.7-1.3); POTASSIUM 4.9 mmol/L (3.5-5.1)
[2020-07-14 11:34] LABS: ALBUMIN 3.8 g/dL (3.4-5.0); TOTAL BILIRUBIN 0.5 mg/dL (0.2-1.0); TOTAL PROTEIN 7.2 g/dL (6.4-8.2)
[2020-07-14 16:19] VITALS: BP 135/73
--- NOTE | 2020-07-14 16:50 | NUR ---
PT ARRIVED TO THE UNIT AT 1551 ACCOMPANIED BY DAIRY MANAGER/RN ESCORT AT THE TIME OF ARRIVAL R GROIN SITE HEMOSTASIS ALREADY ACHIEVED, CLEAN/DRY/INTACT. NO COMPLAINTS OF PAIN FROM PT AT THE TIME, REQUSTED WATER, GOT WATER. STILL HAVE CONTINUOUS NON EFFECTIVE COUGH, TREATMENT/EDUCATION WENT OVER WITH THE PT. PT WANTED CONTACTED, RN FROM [facility] THAT HAS ALREADY BEEN REACHED
[2020-07-14 20:00] VITALS: BP 138/73
[2020-07-15 08:12] VITALS: BP 139/74
[2020-07-15 08:45] VITALS: BP 139/74
--- NOTE | 2020-07-15 09:07 | NUR ---
RIGHT GROIN CDI WITH NO HEMATOMA. IV AND TELE DISCONTINUED. PT UNDERSTANDS ALL FOLLOW UP ORDERS.
--- NOTE | 2020-07-15 09:32 | P ---
[facility] [place] [address] PROCEDURE REPORT Name: FLORENCIO CLEVELAND Room #: 209-P [facility] M..#: [id number] Admission: 07/14/20 Attend Phys: Rashard Chopra MD Discharge: Date of : 43 Report #: [id number] THIS REPORT FOR: cc: Benjamín Ahuja,Rashard Quezada MD ~ DOC #: [id number] Rashard Chopra MD DATE OF SERVICE: 07/14/2020 ATRIAL FIBRILLATION ABLATION HISTORY: The patient is a 74-year-old with history of Afib, aflutter here for ablation. PROCEDURES PERFORMED: 1. Atrial fibrillation ablation - CPT code 52377. 2. 3D mapping - CPT code 94299. 3. Intracardiac echo - CPT code 04750. 4. Second pathway ablation - CPT code 10659. ANESTHESIA: The patient underwent general anesthesia with no anesthesia related complications. INDICATIONS: The patient underwent informed consent. We discussed the details of the procedure including the risks, which include but not limited to bleeding, infection, vascular damage, cardiac perforation as well as stroke and HI. We also discussed the findings on his CT scan showing a possible lung mass. He would like to proceed with the ablation today. DESCRIPTION OF PROCEDURE: The patient was brought to the EP laboratory in fasting and sedated state, prepped and draped in a sterile fashion. I injected lidocaine at the right groin and obtained access in the right femoral vein x 3, placing a 8, 9 and 7-Serbian short sheath using modified Seldinger technique. Next, under fluoroscopy, decapolar catheter was placed easily in the coronary sinus and ICE catheter was placed in the right atrium. Next, using intracardiac ultrasound, a 3D geometry of the left atrium was created with evidence of two left and two right pulmonary veins. The patient was systemically heparinized and a transseptal was performed using SL1 sheath and a [place] needle. This was straightforward and I exchanged the SL1 sheath for a cryo sheath and placed a Lasso catheter in the left atrium. Using a Lasso catheter, a 3D geometry of the left atrium was created showing very minimal activity of the left common ostium both in the superior and in the inferior branches. The right-sided branches had evidence of activity. Next, the cryoballoon was placed in the left atrium and I performed a two 4-minute freezes in the upper branch of the left common ostium. I then performed a two 4-minute freezes in the left inferior branch of the [address] [address] PROCEDURE REPORT Name: FLORENCIO CLEVELAND Room #: 209-P [facility] M.R.#: [id number] Admission: 07/14/20 Attend Phys: Rashard Chopra MD Discharge: Date of : 43 Report #: [id number] common ostium. I then turned my attention to the right superior pulmonary vein. I performed initial 60 followed by 50 second freeze and came off because of the temps were cold. I then pulled back and performed a 3-minute freeze in this vein isolated at 23 seconds. Next, the right inferior pulmonary vein underwent a 3-minute freeze and isolated at 35 milliseconds. A repeat 3D voltage map was created, showing that the left common ostium and the right-sided veins were now isolated. EP study was performed and AV block was noted at 290 milliseconds. Atrial ERP was noted at 270 milliseconds at [address] cycle length, triple atrial extrastimuli were delivered and there was some short runs of atrial fibrillation and atrial flutter that were nonsustained. Atrial flutter ablation. The patient was prepped for atrial flutter ablation. An 8 mm ablation catheter was placed via a RAMP sheath and ablation was performed at 70 gomez 60 degrees. A continuous drag lesion was created. Post-ablation, the transisthmus conduction time had increased from 70 milliseconds to 150 milliseconds. There was evidence of bidirectional block. Using intracardiac ultrasound, I verified there is no pericardial effusion. The patient received systemic protamine and once ACT was within acceptable range, catheters and sheaths were pulled and hemostasis obtained. The patient awoke neurologically and hemodynamically intact. No complications. No significant bleeding. CONCLUSIONS: 1. Successful AFib ablation with isolation of the pulmonary veins. 2. Successful atrial flutter ablation with evidence of bidirectional block. 3. Normal SA art function. 4. Normal AV art function. 5. Normal His-Purkinje function. 6. No other inducible arrhythmias on EP study. RECOMMENDATIONS: 1. The patient will be monitored in CCU overnight. 2. Pulmonary consult will be performed while in the hospital for further evaluation of his pulmonary mass. Rashard Chopra MD [facility] [address] [place] [address] PROCEDURE REPORT Name: CLEVELANDFLORENCIO Room #: 209-P [facility] Rochelle M.R.#: [id number] Admission: 07/14/20 Attend Phys: Rashard Chopra MD Discharge: Date of : 43 Report #: [id number] <ELECTRONICALLY SIGNED> By: Rashard Chopra MD 07/15/20 0932 1355 2114 Rashard Chopra MD /nt
[2020-07-15 09:47] VITALS: BP 139/74
== END 2020-07-15 09:49 | disposition home or self-care (01) ==
LOC: CATH → 2N 15:52
PROVIDERS: ADMIT Internal Medicine Infectious Disease; ATTEND Internal Medicine Cardiovascular Disease
DX: I48.91 Unspecified atrial fibrillation (principal); I48.92 Unspecified atrial flutter; Z20.822 Contact with and (suspected) exposure to COVID-19; I25.10 Atherosclerotic heart disease of native coronary artery without angina pectoris; I42.8 Other cardiomyopathies; R55 Syncope and collapse; M17.12 Unilateral primary osteoarthritis, left knee; J45.909 Unspecified asthma, uncomplicated; I11.0 Hypertensive heart disease with heart failure; I50.9 Heart failure, unspecified; R91.8 Other nonspecific abnormal finding of lung field; E78.5 Hyperlipidemia, unspecified; F10.20 Alcohol dependence, uncomplicated; Z79.899 Other long term (current) drug therapy
CPT/HCPCS: 62110; 62900; 65020; 70005

== ENCOUNTER → 2020-08-31 | Outpatient (CLI) | payer OTHER | LOC: PET 08:15 | PROVIDERS: ATTEND Pediatrics | DX: J18.8 Other pneumonia, unspecified organism (principal); R91.1 Solitary pulmonary nodule; J98.11 Atelectasis; J84.10 Pulmonary fibrosis, unspecified; R59.0 Localized enlarged lymph nodes; N28.1 Cyst of kidney, acquired; I70.0 Atherosclerosis of aorta; I70.8 Atherosclerosis of other arteries ==

== ENCOUNTER → 2020-10-01 | Outpatient (CLI) | payer OTHER | LOC: SJCVCIMAG 09-30 08:28 | PROVIDERS: ATTEND Internal Medicine Cardiovascular Disease | DX: I42.8 Other cardiomyopathies (principal); I77.89 Other specified disorders of arteries and arterioles; I25.10 Atherosclerotic heart disease of native coronary artery without angina pectoris; I10 Essential (primary) hypertension ==

== ENCOUNTER → 2020-10-14 | Outpatient (CLI) | payer OTHER | LOC: SJCVC 13:49 | PROVIDERS: ATTEND Internal Medicine Cardiovascular Disease | DX: R94.31 Abnormal electrocardiogram [ECG] [EKG] (principal); I48.0 Paroxysmal atrial fibrillation; I48.3 Typical atrial flutter; R55 Syncope and collapse; J45.909 Unspecified asthma, uncomplicated; I25.10 Atherosclerotic heart disease of native coronary artery without angina pectoris; E78.5 Hyperlipidemia, unspecified; I10 Essential (primary) hypertension; R91.8 Other nonspecific abnormal finding of lung field; Z95.818 Presence of other cardiac implants and grafts; Z88.8 Allergy status to other drugs, medicaments and biological substances; Z79.899 Other long term (current) drug therapy; Z87.891 Personal history of nicotine dependence; Z72.89 Other problems related to lifestyle ==

== ENCOUNTER → 2020-10-15 | Outpatient (CLI) | payer OTHER | LOC: CAT 10-12 11:00 | PROVIDERS: ATTEND Pediatrics | DX: R91.8 Other nonspecific abnormal finding of lung field (principal); N20.0 Calculus of kidney; N28.1 Cyst of kidney, acquired ==

== ENCOUNTER → 2020-11-19 | Outpatient (CLI) | payer OTHER ==
[~2020-11-19] MED LIST changes: +TRIAMTERENE-HC1 EAC2 PO
== END ==
LOC: CAT 10:40
PROVIDERS: ATTEND Pediatrics
DX: R91.1 Solitary pulmonary nodule (principal)

== ENCOUNTER 2020-11-22 06:29 | Inpatient (IN) | payer OTHER ==
[~2020-11-22] VITALS: Ht 190.5 cm; Wt 118.2 kg
[2020-11-22 15:15] VITALS: BP 104/69
[2020-11-22 16:18] LABS: HEMATOCRIT 45.6 % (42.0-52.0); HEMOGLOBIN 15.1 gm/dL (14.0-18.0); MCH 30.2 pg (26.0-34.0); MCHC 33.1 g/dL (28.0-37.0); MCV 91.4 fL (80.0-100.0); RBC 4.99 mil/uL (4.50-6.00); RDW 14.2 % (10.5-14.5); WBC 13.3 thou/uL (4.0-11.0)
[2020-11-22 16:28] LABS: CALCIUM 9.1 mg/dL (8.5-10.1); CREATININE 1.1 mg/dL (0.7-1.3); POTASSIUM 4.7 mmol/L (3.5-5.1)
[2020-11-22 16:34] LABS: ALBUMIN 3.7 g/dL (3.4-5.0); TOTAL BILIRUBIN 0.4 mg/dL (0.2-1.0); TOTAL PROTEIN 6.9 g/dL (6.4-8.2)
[2020-11-22 17:37] VITALS: BP 108/67
[2020-11-22 19:34] VITALS: BP 109/79
--- NOTE | 2020-11-22 19:58 | NUR ---
PT ADMITTED FROM OR FOR BRONCHOSCOPY AND PNEUMOTHORAX AT 1500PM, PT IS A&OX4, PT'S VS ARE STABLE, PT HAS L SIDE CHEST TUBE, PT IS TOLERTAED DINNER , PT IS ON O2 2L/MIN/NC, PT DENIES PAIN AND N/V AT DAY SHFIT.
[2020-11-22 23:36] VITALS: BP 106/58
[2020-11-23 04:00] VITALS: BP 127/67
--- NOTE | 2020-11-23 06:22 | NUR ---
PT PROGRESSING TOWARDS D/C GOALS. VSS AFEBRILE. NO C/O PAIN. CT DRAIN HAS NOT HAD MUCH OUT APPROXIMATELY 1 ML SANGINOUS DRAINAGE NOTED. PT HAS BEEN SLEEPING QUIETLY. SATS WNL.
--- NOTE | 2020-11-23 07:29 | EKG ---
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1945 Requested By: Celsa Aaron Order Number: [id number] MD: Ethan Fairchild Measurements Intervals [place] Rate: 62 P: 38 NV: 149 QRS: -32 QRSD: 118 T: 45 QT: 421 QTc: 428 Interpretive Statements Sinus rhythm Supraventricular bigeminy Inferior infarct, old Baseline wander in lead(s) V2 Compared to ECG 05/20/2020 08:50:46 Atrial premature complex(es) now present Left bundle-branch block now present Electronically Signed On 11-23-2020 7:28:48 CDT by tEhan Fairchild [email or web address] <ELECTRONICALLY SIGNED> By: Ethan Fairchild MD, FACC 11/23/20 0728 131 11 Ethan Fairchild MD, FAC /EPI
[2020-11-23 07:41] VITALS: BP 129/77
[2020-11-23 11:24] VITALS: BP 115/83
[2020-11-23 15:26] VITALS: BP 121/77
[2020-11-23 16:53] VITALS: BP 121/77
--- NOTE | 2020-11-23 17:56 | NUR ---
RN ASSUMED PT'S CARE AT 0700-1740PM, PT IS A&OX4, PT IS OFF O2 AND HE IS ON ROOM AIR , PT'S O2SAT AND VS ARE STABLE, PT DENIES SOB AND PAIN , RN HELPS DR MABRY TO REMOVE PT'S L SIDE CHEST TUBE, PT IS TOLERATED, RN RECEIVED ORDER TO DC PT TO HOME, PT UNDERSTANDS DC TEACHING WELL, INCLUDING MEDICATINS, SEE DR MABRY TOMORROW AND L CHEST TUBE SITE SKIN CARE , PT'S OPERATIONS COORDINATOR PT AT 1740PM, PT IS HAPPY WITH CARE AT 3W.
[2020-11-24 01:06] LABS: GLYCOHEMOGLOBIN (HGB A1C) 5.9 % (4.8-5.6)
--- NOTE | 2020-11-24 18:06 | PATH ---
[facility] [place] [address] PATHOLOGY RPT PROCEDURE Name: BAL BAUM DAVE Room #: 362-P DIS IN M.R.#: [id number] Admission: 11/22/20 Date of : 43 Discharge: 11/23/20 Report #: [id number] Path Case #: [id number] [facility] Accession Number: [id number] . 01 Material submitted: . lung - GUILHERME TISSUE BIOPSY. Modifiers: upper, LOBE . 01 Clinical history: . PUL/BRONCHOSCOPY/PULMONARY MASS RESP/BRONCH BRUSH . 02 Diagnosis: Lung tissue, left upper lobe, biopsy: - Lung tissue with acute and chronic inflammation, hemorrhage, and rare atypical cells (see comment). LBQ 11/24/2020 1331 Local . 02 Comment: The atypical cells are hyperchromatic with enlarged nuclei with irregular nuclear contours with a background of acute and chronic inflammation. These cells could represent reactive atypia in this setting. However, malignancy cannot be entirely excluded. Clinical and radiological correlation is recommended. . This case was co-reviewed with Dr. Ankit Acosta who agrees with the above diagnosis on 11/23/2020. (SCA/db; 11/24/2020) . 02 Electronically signed: . Jamey Ch DO, Pathologist NPI- [id number] . 01 Gross description: . The specimen is received in formalin, labeled "Bal Baum, biopsy-GUILHERME". Received are multiple fragments of red-brown tissue measuring 0.9 x 0.2 x 0.1 cm in aggregate dimensions. The specimen is filtered and entirely submitted in cassette A1. ([facility]; 11/22/2020) NRI/NRI 11/22/2020 2118 Local . 02 Pathologist provided ICD-10: J18.9, J98.4 . 02 CPT . 264958 Specimen Comment: A courtesy copy of this report has been sent to [phone] [id number] [address] PATHOLOGY RPT PROCEDURE Name: BAL BAUM Room #: 362-P [facility] IN M.R.#: [id number] Admission: 11/22/20 Date of : 43 Discharge: 11/23/20 Report #: [id number] Path Case #: [id number] Specimen Comment: [id number] Specimen Comment: Report sent to / DR CHAVES Performed at: 01 [facility] [address] [id number] MD Anup Hidalgo MD Phone: [phone] Performed at: 02 [facility] [address] [id number] MD Ankit Acosta MD Phone: [phone]
--- NOTE | 2020-11-26 09:56 | PATH ---
[facility] [address] [place] [address] PATHOLOGY RPT PROCEDURE Name: FLORENCIO CLEVELAND Room #: 362-P DIS IN M.R.#: [id number] Admission: 11/22/20 Date of : 43 Discharge: 11/23/20 Report #: [id number] Path Case #: [id number] Note [facility] Accession Number: [id number] TESTS RESULT FLAG UNITS REF RANGE LAB Clinician Provided Cytology Information No. of containers..01 Other (Miscellaneous) Source: BAL DIAGNOSIS: 02 BAL NEGATIVE FOR MALIGNANT CELLS. NORMAL BRONCHIAL CELLS AND MACROPHAGES ARE PRESENT. PULMONARY MACROPHAGES PRESENT, INDICATIVE OF LOWER RESPIRATORY TRACT SAMPLING. Signed out by: Jamey Ch DO, Pathologist NPI- [id number] Performed by: Abbie Muñoz, Rehabilitation Construction Specialist ([facility]) Gross description: 01 10ML, HAZY, BRIGHT RED /LCS 11/23/2020 1443 Local FLAG LEGEND: L-Low Normal,H-High Normal,LL-Alert Low,HH-Alert High <-Panic Low,>-Panic High,A-Abnormal,AA-Critical Abnormal Performed at: [address] [place] [address] Anup Hidalgo MD, [address] [place] [id number] Ankit Acosta MD, Specimen Comment: A duplicate report has been generated due to demographic updates. Performed at: [address] [address], [place], [place] [id number] MD Anup Hidalgo MD Phone: [phone]
== END 2020-11-23 17:59 | disposition home or self-care (01) | DRG 166 ==
LOC: PUL → TBA 06:32 → OR 10:29 → TBA 13:33 → PUL 13:33 → 3W 13:33 → EDSTATUS 13:51 → PUL 14:11 → 3W 14:21 → PUL 15:18 → 3W 11-23 17:59
PROVIDERS: Nurse Practitioner Family; ADMIT Hospitalist; ATTEND Pediatrics
DX: J93.9 Pneumothorax, unspecified (principal); J96.00 Acute respiratory failure, unspecified whether with hypoxia or hypercapnia; I42.8 Other cardiomyopathies; I25.10 Atherosclerotic heart disease of native coronary artery without angina pectoris; I50.9 Heart failure, unspecified; E78.5 Hyperlipidemia, unspecified; I48.91 Unspecified atrial fibrillation; J98.4 Other disorders of lung; J45.909 Unspecified asthma, uncomplicated; I11.0 Hypertensive heart disease with heart failure; Z96.652 Presence of left artificial knee joint; Z20.822 Contact with and (suspected) exposure to COVID-19; Z82.49 Family history of ischemic heart disease and other diseases of the circulatory system; Z87.891 Personal history of nicotine dependence; Z88.8 Allergy status to other drugs, medicaments and biological substances; Z23 Encounter for immunization
CPT/HCPCS: 10879; 62110; 62900; 70005

== ENCOUNTER → 2020-11-24 | Outpatient (CLI) | payer OTHER | LOC: RAD 13:24 | PROVIDERS: ATTEND Pediatrics | DX: R06.00 Dyspnea, unspecified (principal) ==

== ENCOUNTER → 2020-11-29 | Outpatient (CLI) | payer OTHER | LOC: RAD 13:09 | PROVIDERS: ATTEND Pediatrics | DX: R06.00 Dyspnea, unspecified (principal) ==

== ENCOUNTER → 2021-01-18 | Outpatient (CLI) | payer OTHER | LOC: SJCVC 10:26 | PROVIDERS: ATTEND Internal Medicine Cardiovascular Disease | DX: R94.31 Abnormal electrocardiogram [ECG] [EKG] (principal); I48.0 Paroxysmal atrial fibrillation; R55 Syncope and collapse; J45.909 Unspecified asthma, uncomplicated; I25.10 Atherosclerotic heart disease of native coronary artery without angina pectoris; E78.5 Hyperlipidemia, unspecified; I42.9 Cardiomyopathy, unspecified; Z95.818 Presence of other cardiac implants and grafts; Z88.8 Allergy status to other drugs, medicaments and biological substances; Z79.899 Other long term (current) drug therapy; Z72.89 Other problems related to lifestyle; Z87.891 Personal history of nicotine dependence ==